=== PATIENT | female | born 1975 | race Caucasian/White ===

== ENCOUNTER 2024-03-12 07:53 | Emergency (ER) | payer MEDICAID, SELFPAY ==
[2024-03-12 07:53] VITALS: BMI 29.9
--- NOTE | 2024-03-12 07:53 | PC.NURSE ---
PT BROUGHT IN BY EMS IN FULL CARDIAC ARREST. PER EMS FAMILY REPORTED THAT PT WAS FINE THIS AM AND SHE WAS ON THE BED AND WAS SEEN TAKING A DEEP BREATH AND BECAME UNCONSCIOUS. CPR WAS STARTED BY FAMILY. PT WAS GIVEN 3 ROUNDS OF EPI IN ROUTE AND DEFIBRILLATE X 2. EMS DID OBTAIN ROSC FOR 3 MIN BUT LOST PULSES PRIOR TO THEIR ARRIVAL TO ER. PT WAS ALSO GIVEN AMIODORONE 300MG AFTER FIRST SHOCK BY EMS. DR OROZCO, RT AND MULTIPLE NURSES AND CNAS AT BEDSIDE. SEE PAPER CHARTING
--- NOTE | 2024-03-12 07:58 | PC.NURSE ---
pt intubated at this time by Dr. Fraga with 7.5 tube, 24 at gums. positive color change on c02 detector. lungs sounds auscultated by Dr Farias bilaterally
--- NOTE | 2024-03-12 07:58 | PD.EDCPR ---
ED CPR RME/HPI General Chief Complaint: Cardiac Arrest/CPR Stated Complaint: CODE BLUE Time Seen by Provider: 03/12/24 08:12 Arrival date/time: 03/12/24 07:54 RME / HPI RME / HPI narrative: DR. OROZCO MAIN ED EVALUATION: 48 year old female with past medical history significant for hypertension presents to the Emergency Department as a code blue, patient has been down since about 0710 hours, 40 minutes prior to arrival. Upon ED arrival: patient had no signs of life, patient was pulseless, patient was immediately transferred to a [place], and CPR was continued. No history or ROS obtainable by patient due to unresponsiveness. EMS gave 3 rounds of EPI and x1 shock prior to arrival. Related Data Home Medications ?Medication ?Instructions ?Recorded ?Confirmed hydrochlorothiazide 25 mg tablet 25 mg PO QDAY 08/19/23 08/19/23 lisinopril 40 mg tablet 40 mg PO QDAY 08/19/23 08/19/23 Previous Rx's ?Medication ?Instructions ?Recorded docusate sodium 100 mg capsule 100 mg PO BID #40 caps 08/20/23 (Colace) hydrocodone 5 mg-acetaminophen 325 1 tab PO Q6H PRN pain (scale score 08/20/23 mg tablet 7-10) #15 tabs ibuprofen 600 mg tablet 600 mg PO Q8H PRN pain (scale 08/20/23 score 4-6) #15 tabs Allergies Allergy/AdvReac Type Severity Reaction Status Date / Time No Known Allergies Allergy Verified 08/20/23 11:53 Review of Systems Review of Systems ROS Unobtainable: unobtainable due to medical condition Past Medical History Past Medical History NEUROLOGIC: Negative Neurological Disorders or Seizures CARDIAC: Positive Cardiac Disorders and Hypertension; Negative Congestive Heart Failure RESPIRATORY: Negative Chronic Obstructive Pulmonary Disease (COPD) GASTROINTESTINAL: Positive Gastrointestinal Disorders, Gall Bladder Disease, Ulcer and Obesity GENITOURINARY: Negative Genitourinary Disorders or Renal Disease REPRODUCTIVE: Positive Previous Pregnancies MUSCULOSKELETAL: Negative Musculoskeletal Disorders ENDOCRINE: Negative Endocrine Disorders, Diabetes Mellitus Type 1 or Diabetes Mellitus Type 2 HEMATOLOGIC: Negative Blood Disorders OTHER HISTORY: Positive Chicken Pox; Negative Hospitalization, Autoimmune Disease, Shingles, Blood Transfusions, Blood Transfusion Reaction, Anesthesia Reactions or Cancer Family History FAMILY HISTORY: Negative Family Psychiatric Problems, Family Respiratory Disorders, Family Cardiac Disorders, Family Gastrointestinal Problems, Family Cancer, Family Surgery or Family Anesthesia Reaction Surgical History SURGICAL: Positive Tubal Ligation and Section (x3) Social History SMOKING STATUS: Never smoker SUBSTANCE USE: does not use ALCOHOL: Never ED Exam Narrative Physical exam: GENERAL APPEARANCE: No sign of life. VITALS: No sign of life. HEENT: No sign of life. Pupils are fixed and dilated. NECK: No sign of life. CARDIOVASCULAR: No sign of life. No pulse present. LUNGS/CHEST: No sign of life. No spontaneous breathing. ABDOMEN: No sign of life. Abdomen is not distended. No pulsation. No mass. EXTREMITIES: No sign of life. Pale, pulseless, no spontaneous movement. SKIN: Pale, cool. No sign of life. MUSCULOSKELETAL: No sign of life. NEURO: No sign of life. Unable to examine. PSYCHIATRIC: No sign of life. Unable to examine. Course Course Course Narrative: 0750: Patient arrived as a code blue and was immediately seen by me. EMS gave 3 rounds of EPI and x1 shock prior to arrival. CPR continued. 0753: Pulse check: No pulse, asystole. CPR continued. 0755: Pulse check: No pulse, asystole. CPR continued. 0757: Pulse check: No pulse, asystole. CPR continued. 0759: Intubation time. Pulse check: No pulse, asystole. CPR continued. 0801: Pulse check: No pulse, asystole. CPR continued. 0803: Pulse check: No pulse, asystole.CPR continued. 0804: Shock delivered. EPI given. CPR continued. 0805: Pulse check: No pulse, asystole. CPR continued. 0807: Pulse check: No pulse, asystole. Time of . Quality Measures none Cardiac Arrest / CPR MDM Narrative MDM Narrative:: The patient was brought into the emergency department by cushion cover inspector. Not much information was obtained from the cushion cover inspector other than the fact that patient collapsed and the family was doing CPR. According to cushion cover inspector the patient has been down for approximately 40 minutes prior to arrival here. Paramedics said that they already gave the patient epinephrine and defibrillated her once. Upon arrival here the patient is showing no sign of life. No pulse. No spontaneous breathing. No spontaneous cardiac activity. And no response to anything. No spontaneous movement. Skin is pale. When we receive her, CPR in progress and continue to be in progress. IV established with the nursing staff. We were giving the patient epinephrine, sodium bicarb, even Narcan and CPR. The ICU resident volunteer for intubation. And he intubated the patient with a size 7-1/2 ET tube. Using glide a scope. Under my direction and observation. The tube is in good position. Verified by gliderscope. Verified by auscultation. Verified also by no stomach air bubble. Verify also by positive for CO2 hand-held monitor color change. In spite of our effort in resuscitating her, the patient never regained any pulses. And she was pronounced . At 8:07 AM. Pupils are fixed and dilated. No spontaneous movement. No cardiac DVT. No spontaneous breathing. 8:23 AM, I spoke to the patient's daughter and her fianc? and they were notified of the patient's . They did confirm that the patient collapsed and fell to the ground and they did CPR for about 10 minutes prior to cushion cover inspector arrival. Patient data External records reviewed:: [facility] previous records (Reviewed cholecystectomy note by Dr. Garcia dated 08/20/23.) and EMS form Clinical information provided by:: EMS Social determinants that could affect healthcare access:: none Patient has the following chronic illnesses:: Hypertension. Cholecystectomy by Dr. Garcia 08/20/23. How is presenting disease/condition affected by chronic disease/condition?: uneffected by Evaluation data The following diagnostics were reviewed and interpreted by me:: other (specify) (none) Lab and/or radiology exams considered but not ordered:: none Interpretation Summary: See above under MDM narrative. Medications / Prescriptions Medications or Prescriptions considered but not ordered:: none Medication administrations:: see above Consultations Consultation(s) initiated? (list below): No Diagnosis Most likely diagnosis given after review of the tests above:: Cardiac arrest Admission Indicated Admission indicated?: not indicated Admission Request Was there a request for admission?: No Disposition Plan Disposition Plan: other (specify) (Patient .) Discharge Plan Plan Patient Disposition: Disposition Comment: Patient Prescriptions/Referrals Prescriptions/Med Rec: No Action hydrochlorothiazide 25 mg Tablet 25 mg PO QDAY lisinopril 40 mg Tablet 40 mg PO QDAY docusate sodium [Colace] 100 mg capsule 100 mg PO BID Qty: 40 0RF ibuprofen 600 mg tablet 600 mg PO Q8H PRN (Reason: pain (scale score 4-6)) Qty: 15 0RF hydrocodone-acetaminophen 5-325 mg tablet 1 tab PO Q6H MDD 4 PRN (Reason: pain (scale score 7-10)) Qty: 15 0RF Referrals: No Primary/Family,Physician [Primary Care Provider] - In 1 week Problem List Clinical Impression: Cardiac arrest Patient/Caregiver Discharge Instructions Print Language: Stateless
--- NOTE | 2024-03-12 08:21 | PC.NURSE ---
DR. OROZCO IN CONFERENCE ROOM SPEAKING WITH FAMILY
--- NOTE | 2024-03-12 08:22 | PC.NURSE ---
CALLED [employer] [facility] TO REPORT . WILL CALL THEM BACK WHEN MORTUARY IS PICKED BY FAMILY
--- NOTE | 2024-03-12 08:25 | PC.NURSE ---
FAMILY AT BEDSIDE
--- NOTE | 2024-03-12 08:31 | PD.RESPROC ---
Procedures Procedure Date / Time 03/12/2431 Intubation Indication(s): acute Resp Failure Informed consent obtained: procedure done urgently Time out done, and the following verified: correct patient, side and site, procedure, patient position and implants and/or equipment Sedative: none Sedative #2: none Paralytic: other (none) Laryngoscope: fiber optic video scope Assist device used: fiber optic device ET tube size: 7.5 ET tube uncuffed: Yes Tube secured depth (cm): 24 Tube secured location: teeth Tube placement confirmation: visualized tube passing through cords, equal breath sounds bilaterally, no breath sounds over epigastrium and confirmation by capnometry Patient tolerated procedure: well and no complications EBL(ml): 0 Intubation complications: none Additional comments: Procedure performed under supervision of Dr. Marquez. Kang Fraga MD, PGY 2. Disclaimer: This note was dictated by speech recognition. Minor errors in box spring maker may be present due to voice recognition software.
--- NOTE | 2024-03-12 09:34 | PC.NURSE ---
CALLED [facility]. SPOKE WITH LORENZO. PER LORENZO THEY NORMALLY CALL [facility] [employer] AND ASKED THAT WE CONTACT THEM OURSELVES. WILL CONTACT [facility] AT THIS TIME.
--- NOTE | 2024-03-12 09:40 | PC.NURSE ---
CONTACTED [facility] TO INFORM THEM THAT FAMILY HAS CHOSEN THEM THE MORTUARY OF THEIR CHOICE, [facility] WILL SEND SOMEONE TO [facility]
--- NOTE | 2024-03-12 10:15 | PC.CC ---
ED [employer] provided support to family. Atmospheric Physicist reviewed mortuaries available for Pt and family agreed for [facility] [phone]. Nurse Sylvia was made aware of family decision.
== END 2024-03-12 10:55 | disposition expired ==
PROVIDERS: Emergency Provider Emergency Medicine
DX: I46.9 Cardiac arrest, cause unspecified (principal); I10 Essential (primary) hypertension
CPT/HCPCS: 31500; 92950; 93005; 99285; J0171